=== PATIENT | male | born 1990 | race Caucasian/White ===

== ENCOUNTER 2018-07-16 12:08 | Emergency (ER) | payer OTHER ==
[~2018-07-16] VITALS: Ht 177.8 cm; Wt 68.0 kg
[2018-07-16] MEDS ORDERED: NORCO 5-325 TA1 EACH PO (13:36)
[2018-07-17] MEDS ORDERED: ADVIL200 M1 (14:47)
== END 2018-07-16 14:07 | disposition home or self-care (01) ==
LOC: ED 12:08
DX: S87.81XA Crushing injury of right lower leg, initial encounter (principal); W23.0XXA Caught, crushed, jammed, or pinched between moving objects, initial encounter
CPT/HCPCS: 73590; 99283-25

== ENCOUNTER 2018-07-17 14:34 | Inpatient (IN) | payer OTHER ==
[~2018-07-17] VITALS: Ht 177.8 cm; Wt 74.8 kg
[~2018-07-17 14:34] MED LIST: NORCO 5-325 TA1 EACH PO
[2018-07-17] MEDS ORDERED: ADVIL200 M1 (14:47)
--- NOTE | 2018-07-17 16:32 | NUR ---
07/17/18 1632 Shama Vo 1608 PT ARRIVED IN PACU SLEEPY WITH NO C/O'S. WOUND VAC ON R LEG AT 125MMHG. 1615 OXYGEN DECREASED TO 4L VIA NC WITH SATS 95%. 1630 OXYGEN DECREASED TO 2L VIA NC WITH SATS 93-96%. ENCOURAGED DEEP BREATHING. R LEG ELEVATED ON ONE PILLOW.
--- NOTE | 2018-07-17 16:55 | NUR ---
PT ARRIVES TO THE UNIT INTO ROOM 109 AT THIS TIME. PT IS A/O X4, WITH NO C/O PAIN, NO N/V AND NO SOB/BREATHING ISSUES. PT ARRIVES ON 1 L/MIN O2 DUE TO RECENT ANESTHESIA. PT IS CALM, COOPERATIVE BUT FLAT AFFECT. LUNGS ARE CLEAR. ENCOURAGED TO COUGH/DEEP BREATHE. HYPOACTIVE BOWEL SOUNDS. LAST BM WAS THIS MORNING. PT DENIES ANY NUMBNESS OR TINGLING- RLE CMS IS WNL; WOUND VAC ON RLE IN PLACE CONTINUOUSLY AT 125 MMHG; ZAK INCISION DRSG IS IN PLACE. SMALL SANGUINOUS DRAINAGE IN WOUND VAC. EDUCATION COMPLETED WITH PT IN REGARDS TO SAFETY, FALL PREVENTION. VISITOR AT THE BEDSIDE. SCD IN PLACE ON LEFT LEG. CRYOCUFF ON RIGHT KNEE. CALL LIG WITHIN REACH. FALL PREVENTION IN PLACE. WILL CONTINUE TO MONITOR.
--- NOTE | 2018-07-17 17:57 | NUR ---
PT RESTING IN BED ABOUT TO HAVE DINNER. HE STILL STATES HE'S HAVING NO PAIN. DENIES ANY NEEDS TO BE MET. ENCOURAGED TO COUGH AND DEEP BREATHE. RLE ELEVATED UP ON PILLOW. SCD ON AND IN PLACE ON LLE. WOUND VAC ON RLE WNL. POST OP VSS. CALL LIGHT WITHIN REACH. FALL PRECAUTIONS IN PLACE. WILL CONTINUE TO MONITOR.
--- NOTE | 2018-07-17 19:05 | NUR ---
CHARGE REPORT RECEIVED FROM MAXWELL BAEZ. PT IN BED, WITH VISITORS AROUND HIM.
--- NOTE | 2018-07-17 19:10 | NUR ---
PRN NORCO GIVEN AT THIS TIME PT IS C/O RLE "SORENESS" OF AN 8 OUT OF 10. EDUCATION GIVEN ON MED. POST OP VS REMAIN STABLE. 1 L/MIN O2 VIA NC PLACED ON PT AGAIN FOR O2 SATS IN 80'S. PT UNDERSTANDS THE NEEDS TO KEEP HIS NC ON.
--- NOTE | 2018-07-17 19:10 | NUR ---
RECIEVED REPORT FROM VINCE ARREOLA. PATIENT LAYING IN BED WITH FAMILY AT BEDSIDE. PATIENT LAYING AWAKE IN BED. CALL LIGHT WITHIN REACH. IV FLUIDS INFUSING PER MAR ORDER. WHITE BOARD UPDATED. FRESH WATER BROUGHT TO PATIENT. FOOD TRAY REMOVED FROM ROOM.
--- NOTE | 2018-07-17 20:27 | NUR ---
ASSESSMENT COMPLETE. 4TH HOUR POST OP VITALS COMPLETE. PATIENT REPORTS "8/10" THROBBING PAIN IN RIGHT LOWER EXTREMITY. PRN PAIN MEDICATION PROVIDED. PATIENT DENIES HAVING NUMBNESS OR TINGLING IN EXTREMTIIES, REPORTS IMPROVED SENSATION IN OPERATIVE LEG. RIGHT LEG ELEVATED ON ONE PILLOW. WOUND VAC DRAINING SEROSANGUANOUS FLUIDS AT 125 MMHG. PATINET DENIES CHEST PAIN, SOB, OR DIFFICULTY BREATHING. IV ASSESS TO BE PATENT, WNL. URINAL AT BEDSIDE. IV FLUIDS INFUSING PER MAR ORDER. 1L VIA TN. CALL LIGHT WITHIN REACH. NO MORE NEEDS AT THIS TIME.
--- NOTE | 2018-07-17 22:57 | NUR ---
ROUNDED ON PATIENT RESTING IN BED. SCHEDULED MEDICATION ADMINSTERED PER MAR ORDER. PATIENT STATES RIGHT LOWER EXTREMITY FEELS "TIGHT", CAPILLARY REFILL LESS THAN 2 SECONDS, TEMPERATURE OF RLE ASSESSED TO BE SAME LLE. PATIENT REPORTS PAIN IS "4/10", AND IS "DOING ALRIGHT". RLE ELEVATED ON PILLOW. CALL LIGHT WITHIN REACH. NO MORE NEEDS AT THIS TIME.
--- NOTE | 2018-07-18 00:29 | NUR ---
ROUNDED ON PATIENT TO SET UP CONTINOUS PULSE OX, CPOX WNL. TITRATED O2 TO MAINTAIN O2 SATS ABOVE 90%. EMPTIED PATIENT URINAL. PROVIDED FAMILY MEMBER WITH WARM BLANKET PER REQUEST. IV FLUIDS INFUSING PER MAR ORDER. NO MORE NEEDS AT THIS TIME. CALL LIGHT WITHIN REACH.
--- NOTE | 2018-07-18 02:45 | NUR ---
ASSESSMENT COMPLETE. PATIENT REPORTS "8/10" PAIN IN RLE THAT IS DESCRIBED "PRESSURE", PRN PAIN MEDICATION PROVIDED AT 0228. PATINET REPORTS EXPERIENCING "A FEW" "PATY HORSES" IN MEDIAL UPPER CALF. STRONG PEDIAL PULSES IN BILATERAL LOWER EXTREMITIES, AND CAPILLARY REFILL LESS THAN 2 SECONDS. WOUND VAC DRAINING AT 125 MMHG PER ORDER, SMALL AMOUNT OF SANGUANOUS FLUID DRAINING. RLE ELEVATED ON PILLOW. DRESSING ON RLE IS CDI. PATIENT DENIES HAVING CHEST PAIN, SOB, AND DIFFICULTY BREATHING. CPOX IN PLACE. 2 L VIA NC. CALL LIGHT WITHIN REACH. NO MORE NEEDS AT THIS TIME.
--- NOTE | 2018-07-18 03:02 | NUR ---
MAXWELL ARCHER CHECKED PATIENT'S TEMP.
--- NOTE | 2018-07-18 03:06 | NUR ---
THIS RN ENCOURAGED PATIENT TO TAKE DEEP BREATHS AND USE INCENTIVE SPIROMETER. TEMPERATURE ASSESSED TO BE 99.8F. PATIENT DENIES FEELING LIGHT HEADED OR DIZZY. FRESH WATER BROUGHT TO PATIENT. CALL LIGHT WITHIN REACH. NO MORE NEEDS AT THIS TIME.
--- NOTE | 2018-07-18 04:44 | NUR ---
ROUNDED ON PATIENT TO ASSESS PAIN LEVEL, PATIENT REPORTS "4/10" PAIN AND STATES PAIN IS "NOT TOO BAD". TITRATED O2 TO MAINTAIN O2 SATS OF 90%. ELEVATED HEAD OF BED. REASSESSED PATIENT'S TEMPERATURE, NOTIFED CHARGE NURSE OF PATIENT'S TEMPERAUTRE OF 100.7F VIA ORAL THERMOMETER. ENCOURAGED PATIENT TO USE INCENTIVE SPIROMETER. PATIENT REPORTS FEELING "WARM", PATIENT DENIED WANTING TO REMOVED BLANKETS WHEN ASKED. CALL LIGHT WITHIN REACH. NO MORE NEEDS AT THIS TIME.
--- NOTE | 2018-07-18 06:05 | NUR ---
PATIENT SLEPT ON AND OFF THROUGHTOUT THE NIGHT. DRESSING ON RIGHT LOWER LEG IS CDI, WOUND VAC IN PLACE DRAINING SANGUAGOUS FLUID AT 125 MMGH (CONTINOUS). CPOX. BEDREST. IV FLUIDS INFUSING PER AUG ORDER. O2 TO TITRATE AT 90%. IV FLUID INFUSING PER AUG ORDER. LOW GRADE TEMPS THROUGHOUT THE NIGHT, IS PROVIDED. PRN PAIN MEDICATION X2. RLE ELEVATED ON PILLOW. POOR APPETITE. USES URINAL.
--- NOTE | 2018-07-18 06:53 | NUR ---
ASSESSMENT COMPLETE. PATIENT DENIES CHEST PAIN, SOB, OR DIFFICULTY BREATHING. CPOX IN PLACE. DRESSING ON RIGHT LOWER LEG IS CDI, NO NEW DRAINAGE. WOUND VAC DRAINING SANGUANOUS DRAINAGE. RLE ELEVATED ON PILLOW. 2 L VIA NC. 2+ PEDAL PULSES. INCENTIVE SPIROMETER AT BEDSIDE. FRESH WATER BROUGHT TO PATIENT. PATIENT DENIED WANTING TO USE URINAL AT THIS TIME. CALL LIGHT WITHIN REACH. NO MORE NEEDS AT THIS TIME.
--- NOTE | 2018-07-18 07:09 | OR ---
[facility] [address], [place] [address] Signed DATE OF OPERATION: 07/17/2018 SURGEON: Lyndsey Kumar MD PREOPERATIVE DIAGNOSIS: Compartment syndrome, right lower leg. POSTOPERATIVE DIAGNOSIS: Compartment syndrome, right lower leg. PROCEDURE PERFORMED: Four-compartment compartment release of the right lower leg. ANESTHESIA: General. SPECIMENS AND COMPLICATIONS: There were no specimens or complications. TOURNIQUET: Not used. WHAT WAS DONE: The patient was taken to the operating room. After anesthesia was induced and the airway secured, the right lower extremity was positioned, prepped and draped in a routine sterile fashion. Beginning laterally, a generous lateral incision was made in the interval between the anterior and the lateral compartment. Skin was divided sharply. The tip of the 15 blade was then used to release the fascia over the lateral compartment and the muscles bulged out rather significantly. We then released the anterior compartment and again there was a significant bulging of the muscles. The wound was gently irrigated. We then made a medial incision and we were able to release the superficial posterior and the deep posterior compartment. There was marked bulging particularly over the medial gastrocs out of the medial wound. We irrigated both wounds. We were then able to approximate the skin only on the lateral side. Medially, we had a fairly significant defect and therefore applied a wound VAC drain. The patient had a sterile dressing placed on the rest of the right leg to cover the lateral incision and a bulky dressing was applied. He was awakened, taken to the recovery room where he arrived in stable condition. Counts were correct and antibiotic protocols were followed. Electronically Signed By: LYNDSEY KUMAR MD 07/18/18 0709 PATIENT NAME: CONCEPCIÓN BUCIO OPERATIVE REPORT DATE OF : 89 REPORT #: [id number] PHYSICIAN: LYNDSEY KUMAR MD PCP: NO PRIMARY CARE PHYSICIAN REPORT IS CONFIDENTIAL AND NOT TO BE RELEASED WITHOUT AUTHORIZATION [address] [address] Signed Lyndsey Kumar MD WFB/MODL /[id number] Copies: ~ Electronically Signed By: LYNDSEY KUMAR MD 07/18/18 0709 PATIENT NAME: CONCEPCIÓN BUCIO OPERATIVE REPORT DATE OF : [birth year] REPORT #: [id number] PHYSICIAN: LYNDSEY KUMAR MD PCP: NO PRIMARY CARE PHYSICIAN REPORT IS CONFIDENTIAL AND NOT TO BE RELEASED WITHOUT AUTHORIZATION
--- NOTE | 2018-07-18 07:35 | NUR ---
PT AWAKE, ALERT AND ORIENTED X3. PT SITTING UP IN BED EATING BREAKFAST. ASSESSMENT TO RIGHT LOWER EXT COMPLETED; PT VERBALIZED FULL SENSATION IN RIGHT LEG AND FOOT/TOE(S). CAP REFILL INTACT AND LESS THAN THREE SECONDS TO RIGHT TOES. WOUND VAC INTACT UNDER BULKY DRESSING TO RIGHT LOWER LEG; TUBE IS PATENT AND DRAIN APPROP, SAROSANG OUTPUT. SUCTION ON PUMP IS 125MMHG. RIGHT LEG IS ELEVATED ON PILLOW AT THIS TIME. PT REPORT PAIN IN RIGHT LOWER LEG; WILL ADMIN PAIN MED A/S/A/P. URINAL WITHIN REACH OF PT. PT HAS NO NEEDS AT THIS TIME. PERSONAL SUPPLIES AND CALL LIGHT WITHIN REACH.
--- NOTE | 2018-07-18 07:50 | NUR ---
ADMIN NORCO 5/325MG PO FOR REPORTS OF 6/10 ABD PAIN.
--- NOTE | 2018-07-18 07:58 | NUR ---
NOTIFED DR. KUMAR OF PATIENT'S TEMPERATURES THROUGHTOUT THE NIGHT AND OVERALL STATUS. LEFT MESSAGE, NO ANSWER. DAY TIME NURSE AWARE OF NOTIFYING DR. KUMAR.
--- NOTE | 2018-07-18 08:23 | NUR ---
PATIENT SITTING UP IN BED EATING BREAKFAST. RN IN ROOM. FRESH WATER GIVEN. CALL LIGHT IN REACH. NO FURTHER NEEDS AT THIS TIME.
--- NOTE | 2018-07-18 10:10 | NUR ---
MED REC COMPLETE
--- NOTE | 2018-07-18 10:19 | NUR ---
PATIENT IN BED, FAMILY IN ROOM. CALL LIGHT IN REACH. NO FURTHER NEEDS AT THIS TIME.
--- NOTE | 2018-07-18 11:33 | NUR ---
PT SLEEPING AT THIS TIME, RESP EVEN AND NON LABORED. OXYGEN SAT LEVEL IS 95% ON 2L. PT APPEARS TO BE WITHOUT PAIN AT THIS TIME. RIGHT LOWER EXT ELVEATED ON PILLOW. URINAL WITHIN REACH. PERSONAL SUPPLIES AND CALL LIGHT WITHIN REACH. NO NEEDS AT THIS TIME.
--- NOTE | 2018-07-18 13:53 | NUR ---
PATIENT IN BED RESTING WITH EYES CLOSED. FAMILY IN ROOM. PATIENT DID NOT VOID RN NOTIFIED. CALL LIGHT IN REACH. NO FURTHER NEEDS AT THIS TIME.
--- NOTE | 2018-07-18 13:58 | NUR ---
PT LAYING IN BED, RM DARKENED AND TV OFF. HE IS ALERT AND ORIENTED. APPEARS THOUGH HE IS DEALING WITH SOME MILD DEPRESSION. THE SEVERITY OF HIS ACCIDENT I THINK IS BEGINNING TO SET IN. EXTENDED A BLESSING, WILL CONTINUE TO FOLLOW NEEDED
--- NOTE | 2018-07-18 14:37 | NUR ---
PT AWAKE, ALERT AND ORIENTED X3. IV FLUIDS ARE RUNNING AT THIS TIME. PT DECLINED NEW ORDER OF FLEXIRIL. PT REPORTS UPSET STOMACH. ZOFRAN GIVEN BY ANOTHER RN. PT HAS NO NEEDS AT THIS TIME. PERSONAL SUPPLIES AND CALL LIGHT WITHIN REACH.
--- NOTE | 2018-07-18 17:14 | NUR ---
EDUCATION PROVIDED TO PT REGARDING PLAN OF CARE. PT UNWILLING TO GET UP INTO CHAIR THIS SHIFT AFTER SEVERAL ATTEMPTS. DISCUSSED BENEFITS OF POSITION CHANGE AND PREVENTION OF PNEUMONIA. PT STATES HE DOES NOT FEEL WELL AT THIS TIME. NAUSEA MEDICATION RECENTLY GIVEN. MORHPINE IVP ADMIN FOR REPORTS OF 5/10 RIGHT LOWER EXT PAIN AND PT ALSO STATES HE HAS A HEADACHE. PT HAS HAD POOR APPETITE THIS SHIFT; CONSUMED APPROX 50% OF MEALS. PT HAS HAD SEVERAL VISITORS THIS SHIFT. PT APPEARS TIRED. WILL ENCOURAGE QUIET TIMES AND REST BREAKS.
--- NOTE | 2018-07-18 18:30 | NUR ---
PATIENT IN BED RESTING. IN ROOM. CALL LIGHT IN REACH. NO FURTHER NEEDS AT THIS TIME.
--- NOTE | 2018-07-18 19:05 | NUR ---
CHARGE NURSE REPORT RECEIVED. PT WITH FAMILY IN ROOM NO NEEDS AT THIS TIME.
--- NOTE | 2018-07-18 19:18 | NUR ---
RECIEVED REPORT FROM NANO ARREOLA. PATIENT RESTING IN BED WITH EYES CLOSED, RESPIRATORY RATE IS EVEN AND UNLABORED. CPOX IN PLACE. FAMILY AT BEDSIDE. WHITE BOARD UPDATED. IV FLUIDS INFUSING PER AUG ORDER. WOUND VAC DRAINING AT 125 MMHG. CALL LIGHT WITHIN REACH. NANO ARREOLA TITRATED PATIENT O2 TO MAINTAIN O2 SATS AT 90%. NO MORE NEEDS AT THIS TIME.
--- NOTE | 2018-07-18 21:46 | NUR ---
ASSESSMENT COMPLETE. PATIENT REPORTS "8/10" "THROBBING" PAIN, PRN PAIN MEDICATION PROVIDED. PATIENT DENIES CHEST PAIN, SOB, OR DIFFICULTY BREATHING. ACTIVE BOWEL TONES, PATIENT REPORTS PASSING FLATUS. STRONG PERIPHERAL PULSES. RLE WARM TO TOUCH, CAPILLARY REFILL LESS THAN 2 SECONDS. LLE IS COOL TO TOUCH, STRONG PERIPHERAL PULSES, CAPILLARY REFILL LESS THAN 2 SECONDS. PROVIDED PATIENT APPLESAUSE AND CRACKERS, PATIENT DENIES NAUSEA. IV ASSESSED TO BE PATENT, IV FLUIDS INFUSING PER MAR ORDER. DRESSING ON RLE IS CDI, NO NEW DRAINAGE. SMALL AMOUNT OF SANGUANOUS FLUIDS DRAINING IN WOUND VAC AT 125 MMGH. RLE ELEVATED ON PILLOW. PATIENT REPORTS SENSATION IN RLE, PATIENT DENIES DEFICITS. CPOX, WNL. 3L VIA CA. CALL LIGHT WITHIN REACH. NO MORE NEEDS AT THIS TIME.
--- NOTE | 2018-07-18 22:22 | NUR ---
ROUNDED ON PATIENT TO REPLACE IV FLUID BAG. CPOX WNL. PATIENT LAYING IN BED WITH FAMIY AT BESIDE. CALL LIGHT WITHIN REACH. NO MORE NEEDS AT THIS TIME.
--- NOTE | 2018-07-19 00:21 | NUR ---
V/S AND I&O DONE AND CHARTED. ICE WATER REFILLED. MOTHER IN THE ROOM.
--- NOTE | 2018-07-19 00:25 | NUR ---
ROUNDED ON PATIENT RESTING IN BED WITH EYES CLOSED, RESPIRATORY RATE IS EVEN AND UNLABORED. CPOX, WNL. EMPTIED PATIENT URINAL. DEBORAH REPORTS PAIN IS "DOING FINE" AND RATES PAIN "3/10" IN RLE. CALL LIGHT WITHIN REACH. NO MORE NEEDS AT THIS TIME.
--- NOTE | 2018-07-19 03:00 | NUR ---
rounded on patient resting in bed. cpox wnl. resting in bed with family at bedside. eyes closed, respiratory rate is even and unlabored. call light within reach.
--- NOTE | 2018-07-19 03:43 | NUR ---
PT COMPLAINED OF 8/10 PAIN TO RIGHT LEG, STATES HE HAS BEEN ABLE TO SLEEP THROUGHOUT FOR FAR. MED WITH ONE PRN PO NORCO FOR RLE PAIN.
--- NOTE | 2018-07-19 04:27 | NUR ---
ROUNDED ON PATIENT RESTING IN BED WITH EYES CLOSED. NC IN PLACE. CPOX, WNL. IV FLUIDS INFUSING PER MAR ORDER. RESPIRATORY RATE IS EVEN AND UNLABORED. CALL LIGHT WITHIN REACH.
--- NOTE | 2018-07-19 06:00 | NUR ---
ASSESSMENT COMPLETE. PATIENT REPORTS PAIN A "6/10" IN RIGHT LOWER EXTREMITIES. RLE ELEVATED ON PILLOW. STRONG PULSES IN BLE AND CAPILLARY REFILL LESS THAN 2 SECONDS, WARM TO THE TOUCH. DRESSING IS CDI. WOUND VAC DRAINING SMALL AMOUNT OF SANGUANOUS FLUID AT 125 MMGH. 3L VIA NC, CPOX WNL. FAMILY AT BEDSIDE. IV FLUIDS INFUSING PER MAR ORDER. CALL LIGHT WITHIN REACH. NO MORE NEEDS AT THIS TIME.
--- NOTE | 2018-07-19 06:53 | NUR ---
SLEPT THROUGHOUT THE NIGHT. TITRATE OXYGEN MAINTAIN O2 SATS AT 90%. WOUND VAC, DRAINING SANGUANOUS FLUID AT 125 MMGH. RLE ELEVATED ON PILLOW. IV FLUIDS INFUSING PER MAR ORDER. PRN PAIN MEDICATION X2.
--- NOTE | 2018-07-19 07:30 | NUR ---
THIS RN REASSESSED PATIENT BLOOD PRESSURE TO BE 109/60 (70), AFTER BLOOD PRESSURE AT 0601 WAS 98/46.
--- NOTE | 2018-07-19 08:27 | NUR ---
PT TRANSITIONED TO CHAIR. PT A&OX3. PT ON 2L OXYGEN NC, SAT LEVEL 91%. ENCOURAGED ISS USE. MORPHINE 1MG IVP AND FLEXIRIL PO ADMIN FOR PAIN/MUSCLE SPASMS. PT REPORTS PAIN LEVEL OF 5/10 RIGHT LOWER LEG. IN ROOM. BREAKFAST ORDERED AND TOLERATED. NO NEEDS AT THIS TIME. PERSONAL SUPPLIES AND CALL LIGHT WITHIN REACH OF PT.
--- NOTE | 2018-07-19 13:33 | NUR ---
Pt spent several hours in chair this afternoon, tolerated well. Pt transitioned back to bed per his request. Pt reports pain has improved in right lower leg. Pt's right leg elevated on pillow. Cms intact, skin to right foot is warm to touch, cap refill less than 3 seconds. Wound vac is intact under dressing, patent and no air leak. Personal supplies and call light within reach.
--- NOTE | 2018-07-19 13:38 | NUR ---
PT SITTING IN CHAIR, ALERT, ORIENTED AND LIGHTS OUT IN RM. PT IS PLEASANT, AND BEGAN TO SHARE WITH ME HOW HIS ACCIDENT HAPPENED. PT MENTIONED THAT HE HAS NOT BEEN WATCHING TV BECAUSE HE IS USED TO [employer] AND [employer]. HAD GOOD VISIT WITH PT, REMINDED HIM TO USE #'S TO DESCRIBE HIS PAIN-HE KNODDED HIS HEAD IN ACKNOWLEDGEMENT. EXTENDED A BLESSING, WILL CONTINUE TO FOLLOW NEEDED
--- NOTE | 2018-07-19 15:34 | NUR ---
PT STATES HE IS PLANNING ON RETURNING HOME WHEN ALL THIS IS OVER WITH, STATES THIS IS NOT MY FAVORITE PLACE TO BE. I JUST WANT THIS TO BE OVER, I JUST WANT TO BE HOME.
--- NOTE | 2018-07-19 15:49 | NUR ---
PT'S OXYGEN IS IMPROVING, SAT LEVEL 94% ON 3L, RES EVEN AND NON LABORED. PT SLEEPING AT THIS TIME. PERSONAL SUPPLIES AND CALL LIGHT WITHIN REACH.
--- NOTE | 2018-07-19 18:13 | NUR ---
PATIENT CALLED STATING THAT HIS DINNER WAS MAKING HIM NAUSEOUS. PATIENT GIVEN CHICKEN NOODLE SOUP AND CRACKERS INSTEAD. PATIENT RESTING IN BED, EYES CLOSED, CALL LIGHT IN REACH. NO OTHER NEEDS AT THIS TIME.
--- NOTE | 2018-07-19 18:21 | NUR ---
PT UP IN CHAIR FOR MEALS. 3L NC. ELEVATE RIGHT LOWER EXT, WOUND VAC INTACT @125MMHG. NASUSEATED X1, IMPROVING. TOLERATING REG DIET. CMS INTACT. NPO @0000. SURGERY PLANNED FOR TOMORROW AFTERNOON.
--- NOTE | 2018-07-19 19:17 | NUR ---
IN TO CHECK OF PT. PT OXYGEN DECREASED TO 88% ON 3L NC. TRANSITIONED TO MASK PT IS SLEEPING WITH MOUTH OPEN. OXYGEN INCREASED TO 5L AT THIS TIME, SAT LEVEL IS 94%. EDUCATION PROVIDED TO PT TO USE ISS AND EFFECTIVELY CDB. PT DEMONSTRATES INSTRUCTION WELL.
--- NOTE | 2018-07-19 20:00 | NUR ---
coop with assessment, o2 decreased to 4L oxymask
--- NOTE | 2018-07-19 21:17 | NUR ---
medicayed wtih 1 norco 8/10 r leg pain, oxymask changed to nc at his request
--- NOTE | 2018-07-20 00:48 | NUR ---
RESTING, O2 4L NC IN PLACE, DRESSING R LEG, WOUND VAC PATENT. NO FURTHER C/O PAIN, CPOX IN PLACE, SATS 93%. CALL LIGHT AT BEDSIDE, IN ROOM
--- NOTE | 2018-07-20 03:13 | NUR ---
medicated wtih 1 norco 8/10 r leg pain
--- NOTE | 2018-07-20 05:53 | NUR ---
PT CURRENTLY NPO FOR AM PROCEDURE WITH DR KUMAR. R LEG NAINA WRAP DRESSING IN PLACE CDI, WOUND VAC IN PLACE PATENT. GOOD CMS, TOES WARM. IVF INFUSING W/O PROBLEMS, ELEVATED, HAS BEEN MEDICATED 2X WITH 1 NORCO WITH GOOD PAIN RELIEF. COOPERATIVE WITH PROCEDURES, IN ROOM
--- NOTE | 2018-07-20 07:10 | NUR ---
PT RESTING SUPINE IN BED, ALERT TO VOICE AND ORIENTED. PT REMAINS ON 4LPNC AND WAS ENCOURAGED TO CONTINUE DEEP BREATHING AND COUGHING INTERMITTANTLY WITH USE OF I.S. WHICH IS AT BEDSIDE. PT CURRENTLY 94% ON 4LPNC. BEDSIDE REPORT RECEIVED FROM MAXWELL DEWEY. PT DENIES NEEDS OR CONCERNS AT THIS TIME. WOUND VAC WNL, CMS INTACT TO RLE. PT'S AT BEDSIDE. PT APPEARS TO BE IN NO ACUTE DISTRESS AND DENIES SX'S. PT REMAINS NPO IN PREPERATION TO SX WITH DR KUMAR. CALL LIGHT IN REACH.
--- NOTE | 2018-07-20 07:50 | NUR ---
PT RESTING IN BED, WITH LE'S ELEVATED AND HOB SLIGHTLY ELEVATED TO SEMI FOWLERS. ASSESSMENT COMPLETED AND PT CONTINUES TO DENY SOB AND SATS 94% ON 4LPNC. LUNG SOUNDS ARE DIMINISHED IN BILAT BASES, THIS CORRELATES WITH REPORT RECEIVED FROM OFFGOING RN. CMS INTACT TO BILAT LE'S AND LE ELEVATED IN BED. DSG REMAINS CDI AND WOUND VAC APPEARS TO BE WNL.
--- NOTE | 2018-07-20 08:06 | NUR ---
Unable to reach Dr Tucker via cell phone at this time, voicemail left requesting call back.
--- NOTE | 2018-07-20 08:31 | NUR ---
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 also notified of no preop abx ordered. Dr. Tucker requests hospitalist consult. 0826: Dr pino notified of Isabel request and of my concerns new order received fro portable CXR and room air ABG. Imaging and RT to be notified of new orders.
--- NOTE | 2018-07-20 08:41 | NUR ---
Dr Tucekr called back and was updated on hospitalists orders for ABG on room air and order for portable CXR. Imaging and RT notified of new orders. Call light and h20 in reach.
--- NOTE | 2018-07-20 08:46 | NUR ---
Per Dr Raza request o2 removed for RA ABG. O2 desats to 84% on RA. MD notified and would like to continue with room air ABG, RT here on MS floor and was notified of low o2 and of need for ABG now and agrees to go see patient at this time. pt denies sob and call light in reach. pt does report 8/10 pain. will administer prn pain med.
--- NOTE | 2018-07-20 08:50 | NUR ---
RT RESUMED 3LPNC UPON DRAWING ROOM AIR ABG. RESPIRATIONS EVEN AND UNLABORED WITH NO REPORTS OF SOB.
--- NOTE | 2018-07-20 09:06 | NUR ---
Pt is coughing up small amounts of thick blood tinged sputem. Dr Raza aware.
--- NOTE | 2018-07-20 09:43 | NUR ---
PATIENT IN BED. PATIENT'S BODY CLEANED WITH SURGICAL WIPES BEFORE SURGERY. PATIENT USING A CLEAN GOWN. VITAL SIGNS AND I&O DONE. CALL LIGHT WITHIN REACH. NO OTHER NEEDS AT THIS TIME.
--- NOTE | 2018-07-20 10:28 | NUR ---
RT AND CUSTOMER CARE PROFESSIONAL NOTIFIED OF NEW ORDERS. PT UPDATED ON POC AND EDUCATED ON COLLECTION OF SPUTEM SAMPLE. STERILE COLLECTION CONTAINER WITHIN REACHA AT BEDSIDE AND PT VERBALIZED UNDERSTANDING. PT DENIES FURHTER CONCERNS OR REQUESTS AFTER EDUCATION PROVIDED. CALL LIGHT IN REACH. PT REMAINS AT 94% ON 4LPNC, RR18.
--- NOTE | 2018-07-20 10:44 | NUR ---
LAB IN COLLECTING CULTURES AND OTHER ORDERED IV BLOOD SAMPLES.
--- NOTE | 2018-07-20 11:36 | NUR ---
Pt departs MS floor to OR with LICENSED OPTICAL DISPENSER. OR nurse notified of pt's request for Dr Tucker to go ever procedure a second time with patient and states Dr Tucker will further discuss this with pt and answer any questions pt may have.
--- NOTE | 2018-07-20 11:39 | NUR ---
PHARMACY NOTIFIED OF NEED TO SEND IV ABX TO PT IN OR HE WILL BE THERE FOR SX.
--- NOTE | 2018-07-20 13:31 | NUR ---
PT REMAINS OFF OF M/S FLOOR AT THIS TIME.
--- NOTE | 2018-07-20 13:42 | NUR ---
07/20/18 1342 Sheets,Cely 1321 PT ARRIVED TO PACU ON 6L VIA MASK, RESP EVEN AND UNLABORED. PT DENIES NAUSEA AND PAIN. PT EDUCATION GIVEN ON DEEP BREATHING AND COUGHING. 1332 O2 REMOVED. 1334 NC PLACED AT 2L VIA NC. PT CONTINUES TO DEEP BREATHE AND COUGH.
--- NOTE | 2018-07-20 16:24 | NUR ---
PT ASSISTED UP TO CHAIR WITH 1PA AND FWW. PT TOLERATED TRANSFER WELL. PT'S LEGS ELEVATED ON 2 PILLOWS AND CHAIR RECLINED. H20, CALL LIGHT AND PERSONAL ITEMS IN REACH. NO FURTHER NEEDS OR CONCERNS VOICED.
--- NOTE | 2018-07-20 18:10 | NUR ---
PATIENT RESTING IN BED. FAMILY AND RN IN ROOM. VITAL SIGNS AND I&O DONE. CALL LIGHT WITHIN REACH. NO OTHER NEEDS AT THIS TIME
--- NOTE | 2018-07-20 18:49 | NUR ---
pt resting supine in bed with hob elevated. Pt is maintaining room air sats in mid to high 90's and denies nay sob. call light and h20 in reach. no needs /concerns voiced.
--- NOTE | 2018-07-20 19:13 | NUR ---
PT DX'D WITH BILAT LOWER LOBE PNEUMONIA. PT WAS TITRATED OFF OF O2 TODAY. IV ABX ORDERED. WITH IV MAINTENANCE FLUID. PT TOLERATING PO INTAKE/REG DIET. 1PA WITH FWW. ACTIVITY TOLERATED. PAIN WELL TOLERATED WITH SCHEDULED TORADOL AND TYLENOL. CMS REMAINS INTACT DISTAL TO RIGHT NAINA WRAP WHICH REMAINS CDI. VQS. VSS.
--- NOTE | 2018-07-20 20:12 | NUR ---
coop with assessemt
--- NOTE | 2018-07-21 00:57 | NUR ---
MEDICATED WITH SCHEDULED TYLENOL, IVF INFUSING, DRESSING R LEG CDI, GOOD CMS, ON 1L O2, SATS 91%. AWAKES EASILY. IN ROOM
--- NOTE | 2018-07-21 01:35 | NUR ---
VITALS AND I&OS DONE AND CHARTED. HELPED PT TO THE BATHROOM AND BACK TO BED WITH HIS FWW. FRESH ICE WATER GIVEN. BEDSIDE TABLE AND CALL LIGHT IN REACH.
--- NOTE | 2018-07-21 05:10 | NUR ---
RESTING, NO C/O ADVERSE REACTION TO IV ABX. HAS BEEN MEDICATED WITH SCHEDULED TYLENOL AND TORADOL WITH GOOD PAIN RELIEF. R LEG NAINA WRAP IN PLACE, GOOD CMS. ELEVATED, ICE TO AREA. LUNGS WITH CRACKLES AT BASES, PLACED ON O2 AT 1L NC HE WAS DESSATTING TO 81-88%. UP TO BR WITH 1PA AND FWW, TOLERATES IT WELL. ON RETURN TO BED, PLACED ON CPOX AND IT TOOK 5 MINUTES TO GET SATS FROM 77% TO 91% (WAS ON ROOM AIR GOING TO BR AND RETURNING), CURRENT SATS 93% ON 1L NC AND AFTER CDB, DENIES SOB. TOLERATING QS FLUIDS. 2 SL PATENT. TO BE NOTIFIED OF ABOVE
--- NOTE | 2018-07-21 07:10 | NUR ---
Bedside report received from MAXWELL Soriano. Pt resting supine in bed, eyes closed and respirations even and unlabored on 1lpnc. Call light and h20 in reach and family at bedside. RLE elevated on pillow.
--- NOTE | 2018-07-21 07:24 | NUR ---
RECIEVED REPORT FROM NIGHT NURSE. PT IS CURRENTLY SLEEPING. WILL RETURN FOR MEDICATIONS AND FULL ASSESSMENT.
--- NOTE | 2018-07-21 07:55 | NUR ---
Pt up to restroom on room air with 1pa and fww. Pt tolerated well and is now sitting up in chair, room air sat is 89%. With coughing and deep breathing o2 sat increased to 97% on RA. Pt set up with breakfast tray and ice water/personal belongings in reach. Pt has sputem collection cup also in reach with I.S. and acupella. Pt agrees to try to give sputem sample when able. No further needs or concerns voiced.
--- NOTE | 2018-07-21 07:58 | NUR ---
ANSWERED TO PT CALL LIGHT. ASSIGNED NURSE ASSISTING PT WITH TRANSFER FROM BATHROOM TO CHAIR. PT SAT 86% DURING TRANSFER AND 89% WITH COUGHING AND DEEP BREATHING WHILE SITTING IN CHAIR. GAVE PT NEW BAG OF ICE FOR R LEG. LEFT PT SITTING IN CHAIR WITH R LEG ELEVATED, ICE APPLIED AND CURRENTLY EATING BREAKFAST. NON-SLIP SOCKS ON, CALL LIGHT WITHIN REACH, CHAIR WITHIN REACH AND FALL RISK EDUCATION APPLIED. PT HAS NO CONCERNS AT THIS TIME.
--- NOTE | 2018-07-21 09:16 | NUR ---
PT UP TO RESTROOM WITH 1PSBA AND TOLERATES AMBULATION WELL WITH FWW. PT NOW UP TO CHAIR TOLERATES ROOM AIR O2 SATTING IN LOW 90'S WITH NO REPORTED SOB. ASSESSMENT COMPLETED. CALL LIGHT AND FRESH H20 IN REACH. PT DENIES FURTHER NEEDS OR CONCERNS.
--- NOTE | 2018-07-21 09:30 | NUR ---
ENTERED PT ROOM FOR FULL ASSESSMENT AND MEDICATION ADMINISTRATION. PT WAS SITTING IN CHAIR AND HAD EATEN BREAKFAST. IV IN L HAND WAS FLUSHED AND STARTED ABX. PT TOLERATED MEDICATIONS AND ASSESSMENT WELL. LEFT PT SITTING IN CHAIR WITH IN ROOM. CHAIR IN LOCKED POSITION, CALL LIGHT WITHIN REACH, PROMPTED NOT TO GET UP WITHOUT ASSISTANCE, AND PROVIDED ADEQUATE LIGHTING IN THE ROOM.
--- NOTE | 2018-07-21 09:48 | NUR ---
ANSWERED BATHROOM CALL LIGHT. STAND BY ASSISTED BACK TO CHAIR AFTER URINATING. TOOK ROUNDING VITALS. PT HAS NO C/O SOB AT THIS TIME. LEFT PT SITTING IN CHAIR IN LOCKED POSITION, ID BAND ON PT, CALL LIGHT WITHIN REACH AND NO SLIP SOCKS ON, AND PROMPTED TO CALL BEFORE GETTING UP. PT AND MOM IN ROOM.
--- NOTE | 2018-07-21 11:01 | NUR ---
Pt resting up in chair reclined with rle elevated. IV sl'd so pt can work with PT who is here to work with patient. Both iv's flushed and are patent. Pt denies SOB and is sattign 92% on ra. No needs/concerns voiced.
--- NOTE | 2018-07-21 11:20 | NUR ---
Pt back from working with pt and states he feels comfortable and PT states he did well ambulating in bill. Pt denies sob and o2 sat is 92% on RA. Call light and fresh h20 in reach. Warm blankets provided for comfort, right lower extremity elevated on pillow in bed. Good cms to right lower ext and pt denies numbness/tingling or burning. IV maintenance fluids infusing. No further needs voiced.
--- NOTE | 2018-07-21 11:56 | NUR ---
ENTERED PT ROOM TO ADMINISTER ABX AND TYLENOL. PT STATES THAT HE HAS A 3/10 PAIN AND DOES NOT C/O AY SOB AT THIS TIME. SATS AT 91% AND LEFT SITTING IN BED WITH AND MOM IN ROOM. CALL LIGHT WITHIN REACH, BED IN LOCKED POSITION. PROMPTED PT TO CALL BEFORE GETTING UP.
--- NOTE | 2018-07-21 11:57 | NUR ---
IN TO ADMINISTER IV ABX WITH SN SIDNYE. IV ABX HUNG AND NOW INFUSING THROUGH SEPARATE IV SITES. PT REPORTS PAIN OF 3/10. SCHEDULED PO TYLENOL ADMINISTERED. Call light and h20 in reach. CMS to rle intact and pt denies numbness tingling or burnign to right foot/toes. Pt denies furhter needs/requests. rle remains elevated on pillow and pt denies sob, maintains room air sat in 90's. CPOX remains in place.
--- NOTE | 2018-07-21 12:21 | NUR ---
ANSWERED PT CALL LIGHT TO ASSIST PT TO BATHROOM TO URINATE. PT SAT WENT DOWN TO 86% WHILE AMBULATING TO THE BATHROOM ON ROOM AIR. PT TOOK DEEP BREATHS AND COUGHED ONCE SITTING IN BED AND SAT 91% ON ROOM AIR. IVS RESTARTED WELL SCDS. PT HAS NO C/O SOB OR PAIN AT THIS TIME. LEFT PT SITTING IN BED WITH IN ROOM. CALL LIGHT WITHIN REACH, BED LOCKED AND LOWERED, NO SKID SOCKS ON AND PROMPTED TO CALL BEFORE GETTING UP.
--- NOTE | 2018-07-21 13:34 | NUR ---
PATIENT RESTING IN BED. IN ROOM. VITAL SIGNS AND I&O DONE. PATIENT DID NOT EAT HIS LUNCH YET. CALL LIGHT WITHIN REACH. NO OTHER NEEDS AT THIS TIME.
--- NOTE | 2018-07-21 14:30 | NUR ---
PT RESTING SUPINE IN BED. PT STATES "I'M GETTING PRETTY TIRED, I DIDN'T SLEEP WELL AT ALL LAST NIGHT". PT A/O X4. ASSESSMENT COMPLETED. CALL LIGHT AND H20 IN REACH. NO FURTHER NEEDS/CONCERNS VOICED.
--- NOTE | 2018-07-21 14:35 | OR ---
[facility] [address] [place], [place] [address] Signed DATE OF OPERATION: 07/20/2018 SURGEON: Krishna Kumar MD PREOPERATIVE DIAGNOSIS: Open wound status post fasciotomy, right lower leg. POSTOPERATIVE DIAGNOSIS: Open wound status post fasciotomy, right lower leg. PROCEDURE: Removal of wound VAC, debridement of wound left leg followed by delayed primary wound closure. ANESTHESIA: Spinal with some sedation. SPECIMENS AND COMPLICATIONS: There were no specimens or complications. TOURNIQUET: Not used. WHAT WAS DONE: The patient was taken to the operating room. After anesthesia was induced and the patient sedated, right lower extremity was positioned, prepped and draped in a routine sterile fashion. The wound VAC was removed and the wound was copiously irrigated with jet lavage. We then gently mobilized the anterior and posterior flaps and we were actually able to reapproximate the whole skin incision with interrupted sutures of #3-0 and #0 nylon. A bulky sterile dressing was applied and he was awakened, taken to the recovery room where he arrived in stable condition. Counts were correct and antibiotic protocols were followed. Krishna Kumar MD WFB/MODL Electronically Signed By: KRISHNA KUMAR MD 07/21/18 1435 PATIENT NAME: CONCEPCIÓN BUCIO OPERATIVE REPORT DATE OF : 89 REPORT #: [id number] PHYSICIAN: KRISHNA KUMAR MD PCP: NO PRIMARY CARE PHYSICIAN REPORT IS CONFIDENTIAL AND NOT TO BE RELEASED WITHOUT AUTHORIZATION [address] [place] [address] Signed /[id number] Copies: ~ Electronically Signed By: KRISHNA KUMAR MD 07/21/18 1435 PATIENT NAME: CONCEPCIÓN BUCIO OPERATIVE REPORT DATE OF : [birth year] REPORT #: [id number] PHYSICIAN: KRISHNA KUMAR MD PCP: NO PRIMARY CARE PHYSICIAN REPORT IS CONFIDENTIAL AND NOT TO BE RELEASED WITHOUT AUTHORIZATION
--- NOTE | 2018-07-21 17:18 | NUR ---
PATIENT SITTING UP IN BED. VITAL SIGNS AND I&O DONE. CALL LIGHT WITHIN REACH. NO OTHER NEEDS AT THIS TIME
--- NOTE | 2018-07-21 18:35 | NUR ---
PT HAS REMAINED A/O X4 THROUGHOUT THE DAY AND MAINTAINED ROOM AIR o2 IN MID TO HIGH 90'S ON ROOM AIR EVEN WITH ACTIVITY. RECEIVING SCHEDULED IV ABX. PAIN WELL CONTROLLED WITH SCHEDULED NON OPIOD PAIN MEDS. CMS TO RLE INTACT. NAINA DSG CDI. PT TOLERATING REG DIET. IV'S SL'D BETWEEN ABX. PT IS 1PA WITH FWW AND TOLERATES ACTIVITY WELL AND EXPRESSED WILLINGNESS TO GO FOR WALK BEFORE BED HE HAS NOT BEEN VERY ACTIVE THROUGHOUT THE DAY. RLE REMAINS ELEVATED WITH PILLOW AND ICE FOR COMFORT. VQS, VSS.
--- NOTE | 2018-07-21 21:21 | NUR ---
PATIENT IN BED RESTING. CALL LIGHT IN REACH. NO FURTHER NEEDS AT THIS TIME.
--- NOTE | 2018-07-21 23:15 | NUR ---
MEDICATION DUE. pt RESTING IN BED. MEDICATION INFUSING (SEE MAR). CALL LIGHT WITHIN REACH. NO FURTHER REQUESTS AT THIS TIME.
--- NOTE | 2018-07-22 00:39 | NUR ---
MEDICATION DUE. pt STATED "NO PAIN". ABX INFUSING (SEE MAR). OTHER ABX FINISHED, SL. pt UP TO TOILET. WILL CALL WHEN READY TO GO BACK TO BED.
--- NOTE | 2018-07-22 00:50 | NUR ---
HELPED PT BACK TO THE BED FROM THE BATHROOM. PULSE OX AND SCD'S PLUGGED BACK IN. EMPTIED GARBAGE. BEDSIDE TABLE AND CALL IN REACH. PT NEEDS NOTHING MORE AT THIS TIME.
--- NOTE | 2018-07-22 02:43 | NUR ---
ROUNDED ON pt. RESTING WITH EYES CLOSED, O2 SAT 95% ON 1 L VIA NC.
--- NOTE | 2018-07-22 03:05 | NUR ---
MEDICATION DUE. pt AWOKE WHEN ENTERING THE ROOM. ASSESSMENT DONE. MEDICATION GIVEN (SEE MAR). NO CHANGES FROM PRIOR ASSESSMENT. 1L 02 VIA NC DUE TO DESAT WHILE SLEEPING. CALL LIGHT WITHIN REACH.
--- NOTE | 2018-07-22 04:50 | NUR ---
CALL LIGHT ON. IV PUMP BEEPING, ABX INFUSION COMPLETE. NEXT ABX STARTED (SEE MAR). NO REQUESTS AT THIS TIME. CALL LIGHT WITHIN REACH.
--- NOTE | 2018-07-22 05:06 | NUR ---
pt RESTED ON AND OFF DURING SHIFT. PAIN CONTROLLED WITH SCHEDULED MEDICATIONS. AMBULATED IN [place] X1. 1PA FWW. SL WHEN NOT RECEIVING IV ABX. TOLERATING REGULAR DIET. CPOX, 1 L O2 VIA NC WHILE SLEEPING TO KEEP SATS >90. CMS INTACT. NAINA DRESSING CDI. RLE ELEVATED ON PILLOW WITH ICE FOR COMFORT. USES CALL LIGHT APPROPRIATELY.
--- NOTE | 2018-07-22 07:15 | NUR ---
PT CALL LIGHT ON. THIS RN TO BEDSIDE. SCD' MACHINE ALARMING. ALARM RESOLVED. REPORT RECEIVED FROM MAXWELL HUYNH. PT UP TO CHAIR AND WORKING ON TABLET. PT DENIES PAIN AND NAUSEA. PT REMINDED OF NEED FOR SPUTUM FOR CULTURE, PT STATES "I'M JUST NOT COUGHING, I DON'T KNOW IF YOU'LL BE ABLE TO GET IT." NO ADDITIONAL REQUESTS OR COMLAINTS AT THIS TIME. PT ANTICIPATING BREAKFAST. CALL LIGHT WITHIN REACH.
--- NOTE | 2018-07-22 08:49 | NUR ---
MORNING ASSESSMENT AND MEDICATIONS DUE. THIS RN TO BEDSIDE. PT UP TO CHAIR. PT REPORTS 1/10 PAIN THAT "REALLY DOESN'T HURT AT ALL." PT DENIES NAUEA. O2 SATURATION AT 96% ON ROOM AIR, HR = 84. ASSESSMENT DONE. CMS INTACT, DRESSING C/D/I. PT REPORTS NORMAL SENSATION IN BLE. LUNG SOUNDS CLEAR AND DEMINISED IN BASES. MEDICATIONS GIVEN. PT FINISHED WITH BREAKFAST, TOLERATING WELL. PT ANTICIPATING DISCHRAGE. HOSPITALIST CONSULTED AND REQUESTS THAT THIS RN CALL DR. KUMAR. PT STATES HE HAS NO ADDITIONAL REQUESTS OR COMPLIANTS AT THIS TIME. CALL LIGHT WITHIN REACH. AT BEDSIDE.
--- NOTE | 2018-07-22 09:50 | NUR ---
DR. KUMAR CALLED AND UPDATED ON PT STATUS. DRESSING CHANGE ORDER GIVEN (PLACED INTO EMR). VERBAL ORDERS FOR FOLLOW UP APPOINTMENT TO BE MADE WITHIN [address] KUMAR REQUESTS CALL BACK FOR DISCHARGE PLAN AFTER HOSPITALIST IS ABLE TO SEE PT.
--- NOTE | 2018-07-22 10:00 | NUR ---
PATIENT SITTING UP IN BED. IN ROOM. VITAL SIGNS AND I&O DONE. ICE WATER GIVEN. CALL LIGHT WITHIN REACH. NO OTHER NEEDS AT THIS TIME
--- NOTE | 2018-07-22 10:03 | NUR ---
THIS RN TO ROOM TO CHECK ON PT. PT REPORTS 0/10 PAIN AND DENIES NAUSEA. O2 SATURATION AT 97% ON ROOM AIR. PT UPDATED ON PLAN OF CARE. NO ADDITIONAL REQUESTS OR COMPLAINTS AT THIS TIME. PHYSICAL THERAPY WORKING WITH PT.
--- NOTE | 2018-07-22 11:44 | NUR ---
PATIENT CALLS TO USE BATHROOM. PATIENT IN BED. IN ROOM. PATIENT WALKS TO USE BATHROOM USING A WALKER. ONE PERSON ASSISTING. PATIENT BACKS TO BED. CALL LIGHT WITHIN REACH. NO OTHER NEEDS AT THIS TIME
[2018-07-22] MEDS ORDERED: LEVOFLOXACIN500 MG PO (12:15)
--- NOTE | 2018-07-22 12:30 | NUR ---
THIS RN TO ROOM WITH MD FOR ROUNDS. PT DENIES PAIN AND NAUSEA. PT ANTICIPATING DISCHARGE SOON. DR. KUMAR CALLED AND GIVES THIS RN TELEPHONE ORDERS FOR DISCHARGE. ORDERS PLACED PER MD REQUEST. DR. KUMAR STATES TO CONTINUE HOME MEDICATIONS. IV ABX DC'D PER DR. ANNE, CHARGED NOT GIVEN. PT UPDATED ON PLAN OF CARE. PT EATING LUNCH. DRESSING CHANGED PER DR. KUMAR'S ORDER. MEDICATIONS GIVEN. PT DENIES ADDITIONAL REQUESTS OR COMPLAINTS AT THIS TIME. PT BACK TO BED. BED RAILS UP. CALL LIGHT WITHIN REACH.
--- NOTE | 2018-07-22 13:29 | NUR ---
PATIENT RESTING IN BED. IN ROOM. VITAL SIGNS AND I&O DONE. CALL LIGHT WITHIN REACH. NO OTHER NEEDS AT THIS TIME
--- NOTE | 2018-07-22 13:54 | NUR ---
PT READY FOR DISCHARGE. PIVS DC' PER PROTOCOL. GAUZE AND COBAN APPLIED. VITALS TAKEN. TYLENOL GIVEN (SEE MAR). ABX NOT GIVEN THEY WERE DC'D. STATES OK TO LEAVE SPUTUM SAMPLE UNCOLLECTED. AWAITING DISCHARGE PAPERWORK. PT DRESSING SELF. NO ADDIITONAL REQUESTS OR COMPLAINTS AT THIS TIME.
--- NOTE | 2018-07-22 14:00 | NUR ---
DISCHARGE PAPERWORK COMPLETE. DISCHARGE INSTRUCTIONS REVIEWED WITH PT AND . PT AND VERBALIZE UNDERSTANDING OF INSTRUCTIONS AND STATE THEIR QUESTIONS HAVE BEEN ANSWERED. PT STATES HE HAS VISITED WITH PHARMACIST AND THAT ALL HIS QUESITONS RELATED TO MEDICATIONS HAVE BEEN ANSWERED. PT TRANSFERES SELF TO WHEELCHAIR. NO ADDITIONAL QUESTIONS OR COMPLAINTS. PT WHEELED FROM UNIT TO MEET AT FRONT OF HOPSTIAL.
== END 2018-07-22 14:05 | disposition home or self-care (01) | DRG 907 ==
LOC: OPS 14:34 → MS 14:34 → DS 15:15 → OPS 15:15 → MS 16:45 → OPS 16:58 → MS 16:59
PROVIDERS: ADMIT Orthopaedic Surgery
PROC: 0KNS0ZZ Release Right Lower Leg Muscle, Open Approach (ICD-10-PCS; 2018-07-17)
PROC: 0KNS0ZZ Release Right Lower Leg Muscle, Open Approach (ICD-10-PCS; 2018-07-17)
PROC: 0KNS0ZZ Release Right Lower Leg Muscle, Open Approach (ICD-10-PCS; 2018-07-17)
PROC: 0KNS0ZZ Release Right Lower Leg Muscle, Open Approach (ICD-10-PCS; principal; 2018-07-17 15:15)
PROC: 0HQKXZZ Repair Right Lower Leg Skin, External Approach (ICD-10-PCS; 2018-07-20)
PROC: 0JDN0ZZ Extraction of Right Lower Leg Subcutaneous Tissue and Fascia, Open Approach (ICD-10-PCS; 2018-07-20 12:30)
DX: T79.A21A Traumatic compartment syndrome of right lower extremity, initial encounter (principal); J18.1 Lobar pneumonia, unspecified organism; J96.01 Acute respiratory failure with hypoxia; W23.0XXA Caught, crushed, jammed, or pinched between moving objects, initial encounter
CPT/HCPCS: 00400; 01470; 36415; 36600; 71045; 80048; 80053; 80202; 82803; 83605; 85025; 87040; 94667; 94668; 94762; 97110; 97161; J0131; J0330; J0690; J0692; J1885; J1956; J2250; J2270; J2274; J2405; J2704; J2765; J3010; J3370; J7060; J7120